=== PATIENT | female | born 1980 | race Caucasian/White ===

== ENCOUNTER → 2020-04-29 15:19 | Outpatient (CLI) | payer OTHER, SELFPAY ==
--- NOTE | ~2020-04-29 | US_ITS ---
EXAMINATION: US pelvic complete w TV DATE: 04/29/2020 15:45 INDICATION: Menorrhagia Comparison:No prior studies for comparison. TECHNIQUE: Multiple transabdominal and endovaginal sonographic images of the pelvis performed. FINDINGS: The uterus measures 7.7 x 3.8 x 5.1 cm.. There is a 12 mm nabothian cysts. The endometrial complex measures 4 mm. The right ovary measures 2.7 x 1.9 x 1.6 cm and the left ovary is not visualized. No free fluid. There is no free fluid in the pelvis. There are no abnormal masses seen on either side. IMPRESSION: 1. Unremarkable pelvic ultrasound. Reviewed, dictated and finalized at location A.
== END ==
PROVIDERS: PCP Family Medicine; Visit Provider Obstetrics & Gynecology
DX: N92.0 Excessive and frequent menstruation with regular cycle (principal)
CPT/HCPCS: 76830; 76856

== ENCOUNTER 2020-10-04 09:33 | Emergency (ER) | payer OTHER, SELFPAY ==
[2020-10-04] VITALS (22 sets, daily range): BP systolic 98–131; BP diastolic 57–102; PULSE 56–106; RESP 16–25; TEMP 36.3; O2SAT 100
--- NOTE | ~2020-10-04 | XR_ITS ---
EXAMINATION: XR wrist RT min 3V DATE: 10/04/2020 10:10 INDICATION: Right wrist pain and limited range of motion post fall onto outstretched hand TECHNIQUE: Posteroanterior, oblique, and lateral views of the right wrist were obtained. COMPARISON: none FINDINGS: Comminuted intra-articular fracture at the distal right radius with 4 mm dorsal displacement as well as dorsal angulation resulting in approximately 40 degrees dorsal tilt of the distal articular surfac e. There appears to be obtained to a 2 mm step-off along the dorsal aspect of the articular surface. No other fractures identified. Normal alignment and joint spaces in the visualized right hand. IMPRESSION: 1. Mild dorsal displacement and significant dorsal angulation of a comminuted intra-articular fractur e of the distal right radius. Reviewed, dictated and finalized at location A. R SECURITY CONSULTANT IMPRESSION: 1. Mild dorsal displacement and significant dorsal angulation of a comminuted i ntra-articular fracture of the distal right radius.
--- NOTE | ~2020-10-04 | XR_ITS ---
EXAMINATION: XR wrist RT min 3V DATE: 10/04/2020 12:18 INDICATION: Right wrist pain post splinting TECHNIQUE: 4 views of the right wrist were obtained. COMPARISON: 10/04/2020 at 10:08 AM FINDINGS: Closed reduction and splinting of the previous noted comminuted intra-articular fracture of the dista l right radius with mild decrease in the degree of still moderate amount of posterior angulation. No other fractures identified. IMPRESSION: 1. Mild decrease in still moderate amount of dorsal angulation of a comminuted intra-articular fractu re of the distal right radius. Reviewed, dictated and finalized at location A. OLL OFFICER IMPRESSION: 1. Mild decrease in still moderate amount of dorsal angulation of a comminuted intra-articular fracture of the distal right radius.
--- NOTE | ~2020-10-04 | CT_ITS ---
EXAMINATION: CT wrist RT wo con DATE: 10/04/2020 12:48 INDICATION: Right wrist fracture TECHNIQUE: High resolution computed tomography (CT) of the right wrist and forearm was performed with out intravenous contrast. Additional sagittal and coronal reconstructions were performed. Automated e xposure control and iterative reconstruction technique were employed. The dose-length product was 610 .03 mGy-cm. COMPARISON: None FINDINGS: Again seen is a comminuted intra-articular fracture of the distal right radius. The main transverse f racture plane is displaced approximately 5 mm dorsally. There is comminution and impaction along the dorsal margin of the fracture with dorsal angulation resulting in 25 degrees dorsal tilt of the dista l articular surface. The intra-articular fracture lines form a V-shaped along the articular surface w ith apex at the dorsal rim near the junction of the lunate and scaphoid fossae and with fracture line s extending volar and radial across the dorsal aspect of the scaphoid fossa and volar and ulnarly acr oss the lunate fossa and across the articular surface at the distal radioulnar joint. There is no gre ater than 1.5 mm fracture gap or incongruity along the articular surfaces. No other fractures identif ied. Normal alignment and joint spaces in the visualized right hand and at the right elbow. Soft tiss ues are unremarkable. IMPRESSION: 1. Comminuted intra-articular fracture of the distal right radius with dorsal displacement, dorsal im paction and comminution and dorsal angulation as detailed above. Reviewed, dictated and finalized at location A. RELAY TESTER IMPRESSION: 1. Comminuted intra-articular fracture of the distal right radius with dorsal d isplacement, dorsal impaction and comminution and dorsal angulation as detailed above.
--- NOTE | 2020-10-04 09:44 | ED.UPPEXIN ---
HPI - Extremity Injury (Upper) General Chief Complaint: Extremity Injury, Upper Stated Complaint: right wrist injury Time Seen by Provider: 10/04/20 09:44 Source: patient and family Mode of arrival: ambulatory Limitations: no limitations History of Present Illness HPI narrative: Patient is a 40-year-old female who presents for evaluation of right wrist injury. Patient states she was walking her dog when she began to slip on some steps, falling onto her right outstretched hand, and bearing full weight of the forearm and hand. Patient states she felt a pop with immediate, severe pain in her right wrist. She reports radiation of pain into the elbow but no difficulty moving her elbow. She reports mild swelling at the site. She reports tingling in her fingers. She denies numbness. Patient is right-hand dominant. Patient denies head trauma or neck pain. No loss of consciousness. Patient has been ambulatory. Related Data Home Medications Medication Instructions Recorded Confirmed biotin 1 mg capsule 1 mg PO DAILY 04/18/20 05/20/20 levonorgestrel 20 mcg/24 hours (6 1 device INTRAUTERINE ONCE 09/19/20 09/19/20 yrs) 52 mg intrauterine device Allergies Allergy/AdvReac Type Severity Reaction Status Date / Time No Known Allergies Allergy Verified 09/19/20 08:38 Review of Systems Review of Systems: Narrative: CONSTITUTIONAL: Denies fever CARDIOVASCULAR: Denies chest pain RESPIRATORY: Denies cough or dyspnea. GASTROINTESTINAL: Denies abdominal pain SKIN: Denies rash MUSCULOSKELETAL: Denies back pain, reports right wrist pain NEUROLOGIC: Denies headache PMFSH Past Medical History Medical History (Updated 10/04/20 @ 13:42 by Idania Garcia MD) GERD (gastroesophageal reflux disease) Nicotine dependence, unspecified, uncomplicated Obesity (BMI 30.0-34.9) Vaginal delivery x 2 Surgical History Surgical History H/O adenoidectomy 1983 History of cholecystectomy 2001 History of nasal surgery 2006 Hx of tonsillectomy 1983 Family History Family History Father Diabetes mellitus Cerebrovascular accident Mother Diabetes mellitus Grandparent Diabetes mellitus Hypertension Cerebrovascular accident Family history of kidney disease Malignant neoplasm of prostate Family history of malignant neoplasm of breast Family history of coronary artery disease Other Family history of cardiovascular disease Social History Social History Smoking status: Former smoker Smoking end date: 02/07/15 Alcohol intake: current Drinks per week: 1 Substance use: never Gender identity (if verbalized by the patient): Male Exam Narrative: Exam Narrative: GENERAL: Awake, alert, conversant, tearful HEAD: Normocephalic, atraumatic. EYES: PERRLA and EOMI. ENT: Nares clear, no rhinorrhea or epistaxis. Mucous membranes moist. NECK: Supple. CHEST: No respiratory distress, breathing even and non labored HEART: Regular rate, sinus rhythm ABDOMEN:Non distended, non tender EXTREMITIES: Decreased range of motion in the right wrist due to pain. Deformity present. Radial pulse 2+. Intact sensation median, ulnar, radial nerve distribution. Patient is able to straighten her fingers. Capillary refill less than 3 seconds. Full flexion and extension at the right elbow without limitation. SKIN: Warm, dry, no rash. NEURO:No focal deficits. Alert and oriented x3 Course Vital Signs Vital signs: Vital Signs Temperature 36.3 C L 10/04/20 09:37 Pulse Rate 63 10/04/20 09:37 Respiratory Rate 18 10/04/20 09:37 Blood Pressure 116/66 10/04/20 09:37 Pulse Oximetry 100 10/04/20 09:37 Temperature 36.3 C L 10/04/20 09:37 Pulse Rate 100 10/04/20 12:01 Respiratory Rate 18 10/04/20 12:01 Blood Pressure 118/102 H 10/04/20 12:01 Pul
[2020-10-04] MEDS: SODIUM CHLORIDE 0.9% IV 1,000 ML 999 ML IV CONT (10:00)
[2020-10-04] MEDS: fentaNYL CITRATE INJ (*CRX) 100 MCG/2 ML VIAL 50 MCG IV PUSH (10:00)
[2020-10-04] MEDS: ONDANSETRON INJ 4 MG/2 ML VIAL IV PUSH (10:00)
[2020-10-04] MEDS: HYDROmorphone HCL INJ (*CRX) 1 MG/ML SYR 0.5 MG IV PUSH (10:49)
[2020-10-04] MEDS: fentaNYL CITRATE INJ (*CRX) 100 MCG/2 ML VIAL (12:08)
--- NOTE | 2020-10-04 12:22 | PC.NURSE ---
resting on stretcher. had closed reduction of right wrist. see provider notes. OCL on. fentanyl given prior to procedure and nerve block. denies any pain right now. in room.
--- NOTE | 2020-10-04 13:27 | PC.NURSE ---
resting on stretcher. had CT of right wrist. report is pending. also has order for Vit D level will draw now.
[2020-10-04 14:22] LABS: Vitamin D 25 Hydroxy 23.6 ng/mL
== END 2020-10-04 14:12 | disposition home or self-care (01) ==
PROVIDERS: Emergency Provider Emergency Medicine; PCP Family Medicine
DX: S52.571A Other intraarticular fracture of lower end of right radius, initial encounter for closed fracture (principal); K21.9 Gastro-esophageal reflux disease without esophagitis; E66.9 Obesity, unspecified; Z68.30 Body mass index [BMI] 30.0-30.9, adult; Z87.891 Personal history of nicotine dependence; W10.9XXA Fall (on) (from) unspecified stairs and steps, initial encounter; Y93.K1 Activity, walking an animal
CPT/HCPCS: 25605; 36415; 73110; 73200; 82306; 96374; 96375; 96376; 99285; A4565; J1170; J2405; J3010; J7030

== ENCOUNTER 2020-10-08 01:47 | Day surgery (SDC) | payer OTHER, SELFPAY ==
[2020-10-07 15:04] VITALS: BMI 30.9
--- NOTE | 2020-10-07 17:03 | PM.IMHP ---
H&P: HPI History of Present Illness Date/Time: 10/07/20 17:03 <DAISY Waterman - Last Filed: 10/07/20 17:09> Chief Complaint: Right distal radius fracture <DAISY Waterman - Last Filed: 10/07/20 17:09> Narrative: Alejandra Jerez is a 40 year old female Who presents today for ORIF of her right distal radius fracture. Fracture happened 5 days ago. She was chasing her dog outside when she slipped on the ice landing hard on the right wrist. She had immediate pain in the wrist she was seen in the emergency room x-rays showed a comminuted displaced distal radius fracture. She underwent closed reduction in the ER by the doctors there. She was placed in a sugar-tong splint. CT scan was done of the wrist. These were reviewed by . Patient was seen in the office on 10/07. At that time discussed with her given the severity of the fracture with the comminution and displacement and given her young age that this would be best treated with ORIF of the right distal radius. She presents today for that. Patient did have some tingling in her fingers that started following splint placement, initially was rather intense tingling which has subsided to only very mild when she was seen in the office. <DAISY Waterman - Last Filed: 10/07/20 17:09> Review of Systems Review of Systems: All systems reviewed & are unremarkable except as noted in HPI and below <DAISY Waterman - Last Filed: 10/07/20 17:09> [facility] Past Medical History Medical History: Medical History (Updated 10/07/20 @ 21:34 by Jackelyn Saldana MD) GERD (gastroesophageal reflux disease) Nicotine dependence, unspecified, uncomplicated Obesity (BMI 30.0-34.9) Vaginal delivery x 2 <DAISY Waterman - Last Filed: 10/07/20 17:09> Surgical History Surgical History: Surgical History H/O adenoidectomy 1983 History of cholecystectomy 2001 History of nasal surgery 2006 Hx of tonsillectomy 1983 <DAISY Waterman - Last Filed: 10/07/20 17:09> Family History Family History: Family History Father Diabetes mellitus Cerebrovascular accident Mother Diabetes mellitus Grandparent Diabetes mellitus Hypertension Cerebrovascular accident Family history of kidney disease Malignant neoplasm of prostate Family history of malignant neoplasm of breast Family history of coronary artery disease Other Family history of cardiovascular disease <DAISY Waterman - Last Filed: 10/07/20 17:09> Social History Social History: Social History Years smoked: 15 Smoking status: Former smoker Tobacco type: cigarettes Smoking end date: 10/04/15 Alcohol intake: current Drinks per week: 1 Substance use: never Living arrangements: with family Gender identity (if verbalized by the patient): Male Spiritual care concerns: No <DAISY Waterman - Last Filed: 10/07/20 17:09> Meds Home Medications and Allergies Home medications: Home Medications Medication Instructions Recorded Confirmed Type biotin 1 mg capsule 1 mg PO DAILY 04/18/20 10/07/20 History famotidine 40 mg tablet 40 mg PO DAILY #90 tablet 08/26/20 10/07/20 Rx docusate sodium [Colace] 100 mg PO DAILY 15 Days #15 cap 10/04/20 10/07/20 Rx ibuprofen 400 mg PO TID PRN 10 Days #30 10/04/20 10/07/20 Rx tablet ondansetron HCl [Zofran] 4 mg PO Q8H #14 tablet 10/04/20 10/07/20 Rx oxycodone [Roxicodone] 5 mg PO Q8H PRN #20 tablet 10/04/20 10/07/20 Rx <DAISY Waterman - Last Filed: 10/07/20 17:09> Allergies/Adverse reactions: Allergies Allergy/AdvReac Type Severity Reaction Status Date / Time No Known Allergies Allergy Verified 10/07/20 14:44 <DAISY Waterman - Last Filed: 10/07/20 17:09> Exam Narrative: Exam Narrative: 40-year-old female [place]
--- NOTE | ~2020-10-08 | XR_ITS ---
XR surgery orthopedic 10/08/2020 09:41 Indication: Intraoperative fixation of right wrist Procedure: 10 fluoroscopic images of the right wrist. 338 seconds of fluoroscopy. Comparison: 10/04/2020 Findings: There is anatomic alignment of the distal aspect of the radius fracture status post reducti on with sideplate and screws. No other gross fracture or malalignment. Impression: 1: Anatomic alignment of the distal aspect of the radius post internal reduction with sideplate and s crews. Reviewed, dictated and finalized at location A. OM CLOTHIER Impression: 1: Anatomic alignment of the distal aspect of the radius post internal reductio n with sideplate and screws.
--- NOTE | 2020-10-08 06:49 | WPDANESEPPF ---
Anes - Initial Pre Proc Eval Procedure: Operation Date: 10/08/20 07:30 Proposed Procedures p Open Reduction Internal Fixation Right Wrist - Louis Arzola MD Date/Time: 10/08/20 06:49 Surgeon: Louis Arzola MD Pre Op Diagnosis: right distal radius fx Patient Data Age: 40 Gender: F Height: 1.63 m Weight: 81.65 kg Allergies Allergy/AdvReac Type Severity Reaction Status Date / Time No Known Allergies Allergy Verified 10/07/20 14:44 Home Medications Medication Instructions Recorded Confirmed Type biotin 1 mg capsule 1 mg PO DAILY 04/18/20 10/07/20 History famotidine 40 mg tablet 40 mg PO DAILY #90 tablet 08/26/20 10/07/20 Rx docusate sodium [Colace] 100 mg PO DAILY 15 Days #15 cap 10/04/20 10/07/20 Rx ibuprofen 400 mg PO TID PRN 10 Days #30 10/04/20 10/07/20 Rx tablet ondansetron HCl [Zofran] 4 mg PO Q8H #14 tablet 10/04/20 10/07/20 Rx oxycodone [Roxicodone] 5 mg PO Q8H PRN #20 tablet 10/04/20 10/07/20 Rx Patient hx anesthesia problems: post op nausea/vomiting Family hx anesthesia problems: none PMFSH Past Medical History Medical History (Updated 10/07/20 @ 21:34 by Jackelyn Saldana MD) GERD (gastroesophageal reflux disease) Nicotine dependence, unspecified, uncomplicated Obesity (BMI 30.0-34.9) Vaginal delivery x 2 Surgical History Surgical History H/O adenoidectomy 1983 History of cholecystectomy 2001 History of nasal surgery 2006 Hx of tonsillectomy 1983 Family History Family History Father Diabetes mellitus Cerebrovascular accident Mother Diabetes mellitus Grandparent Diabetes mellitus Hypertension Cerebrovascular accident Family history of kidney disease Malignant neoplasm of prostate Family history of malignant neoplasm of breast Family history of coronary artery disease Other Family history of cardiovascular disease Social History Social History Years smoked: 15 Smoking status: Former smoker Tobacco type: cigarettes Smoking end date: 10/04/15 Alcohol intake: current Drinks per week: 1 Substance use: never Living arrangements: with family Gender identity (if verbalized by the patient): Male Spiritual care concerns: No Anes - Eval Final PreProcedure Day of Procedure 10/08/20 06:49 Patient weight: obese Heart: regular rate and rhythm Lungs: clear to auscultation and normal air movement Airway: Mallampati scale class II Neurological: alert and oriented Last oral intake: >/= 8 hours ASA classification: II Emergent: no Anesthetic plan: proceed Anesthesia type and monitoring: general ETT and standard monitoring Informed Consent: The patient's anesthetic plan and its attendant risks and benefits were discussed with the patient/family/POA. Questions were solicited and answers provided to the satisfaction of the patient/family/POA.
[2020-10-08] MEDS: SCOPOLAMINE 1.5 MG PATCH TRANSDERM (06:56)
[2020-10-08] MEDS: FAMOTIDINE 20 MG/2 ML VIAL IV PUSH (06:56)
[2020-10-08] MEDS: KETOROLAC 15 MG/ML VIAL (*BKC) IV PUSH (06:58)
[2020-10-08] MEDS: ACETAMINOPHEN 500 MG TABLET 1000 MG PO (06:58)
[2020-10-08] MEDS: LACTATED RINGERS 1,000 ML 30 ML IV CONT ×2 (06:59→09:40)
[2020-10-08 07:06] VITALS: BP 124/76; PULSE 79; RESP 14; TEMP 36.3; O2SAT 98; BMI 32.4
--- NOTE | 2020-10-08 07:14 | WPDHPUPDATE1 ---
History and Physical Update Update Date/Time: 10/08/20 07:14 History and Physical has been reviewed, including an updated exam of the patient. There are NO changes in the patient's condition. Risks, benefits, and alternatives have been discussed and questions answered. Patient agrees to proceed with procedure.
[2020-10-08] MEDS: ceFAZolin 2 GM/D5W 50 ML 2 GM/50 ML BAG IVPB (07:28)
--- NOTE | 2020-10-08 07:50 | WPDANESPNB ---
Anes - Peripheral Nerve Block Date/Time: 10/08/20 07:50 I have discussed with the patient/family/POA the placement of a peripheral nerve block for post-operative pain management, including associated risks, benefits, complications, and side effects. Alternative methods of post-operative analgesia were detailed. Questions were solicited and answers provided to the satisfaction of the patient/family/POA. Time-Out: A pre-procedural Time-Out was completed immediately before starting the procedure and confirmed: Patient Identification, Site, Procedure, Patient Position and the Availability of Requisite Equipment. Clinical Indications: Acute post-operative pain management requested by the operative surgeon. Nerve Block Insertion Note Anes-nerve block: supraclavicular right Patient position: supine Skin prep: chlorhexidine Needle: 22 gauge, stimulating, insulated echogenic needle. Needle length: 50 mm Technique: ultrasound Injectate: bupivacaine 0.5% with epi 5 mcg/ml (30cc) Observations: tolerated well Complications: none Procedure start time:: 719 Procedure end time:: 722
[2020-10-08] MEDS: ceFAZolin SODIUM 1 GM VIAL IRRIGATION (07:52)
[2020-10-08] MEDS: ceFAZolin SODIUM 1 GM VIAL IV PUSH (09:31)
--- NOTE | 2020-10-08 09:44 | PM.PROC ---
Procedure Note - Detailed Date of procedure: 10/08/20 Pre-op diagnosis: right distal radius fx Post-op diagnosis: other (Three-part right distal radius fracture and at least partial tear scapholunate ligament) Procedure performed: Patient brought to the operating room and general anesthesia was administered and the right arm prepped draped usual fashion. She received 1 g of vancomycin g of Ancef preoperatively. Limb was exsanguinated and tourniquet elevated to 225 mmHg. A 3-1/2 inch longitudinal incision was made between the radial artery and the CR tendon. Dissection was carried down to FCR tendon sheath which was incised longitudinally and the floor of the sheath incised exposing deep compartment. Flexor pollicis longus retracted ulnarly. Pronator quadratus incised along its radial border elevated off the volar surface of the distal radius. Anatomic reduction was achieved. The sagittal split in the distal fragment remained nondisplaced so we had 1 main volar fragment which assisted with anatomic reduction. The innovation locking plate was chosen and positioned properly using the narrowest plate. This fit line to line medial to lateral on the metaphysis. Guide pin was inserted in the guide pin hole of the distal portion of the plate confirming proper position of plate distally relative to the subchondral bone line. There was rather extensive metaphyseal comminution at the shell of the metaphysis lined up very nicely. The 6 pegs were placed in the distal portion of the plate avoiding dorsal penetration with each peg using fluoroscopy to assist and measurements size. Satisfied with this we on reapplied the traction and loose in the oval screw as we had about 2 mm of ulnar displacement of the shaft relative to the distal fragment and we corrected that and then took the traction off again allowing fracture to settle and optimal alignment relative to shaft. The remaining 2 shaft cortical screws were placed. We confirmed proper lengths of these to avoid dorsal shaft penetration. We studied the scapholunate interval which seemed borderline and on axial loading scapholunate interval widened. I did not feel this would be acceptable and a 40-year-old and I used an 062 K-wire inserted through the waist of the scaphoid and using this as a joystick, the scapholunate interval was reduced I thought and the applied some pressure on the dorsum of the base of metacarpals to correct the DISI deformity simultaneously and pass the and into the lunate. On inspection of the scapholunate interval however I felt that we were still a little bit wide and made the decision therefore 2 removed this and and referred the patient to a hand commission specialist for evaluation and management of the mild scapholunate ligament widening. The wound was irrigated with Ancef solution. The pronator quadratus was approximated to its radial origin with for 0 Vicryl. The skin was closed with through subcutaneous Vicryl and glue. EBL was legs with her. Third g Ancef given at time of wound closure. She did receive a interscalene block preoperatively. She was transferred postop recovery room in stable condition. Surgeon: Louis Arzola MD
[2020-10-08 09:45] VITALS: BP 134/62; PULSE 108; RESP 16; TEMP 35.9; O2SAT 97
[2020-10-08 10:00] VITALS: BP 112/59; PULSE 85; RESP 20; O2SAT 97
[2020-10-08 10:15] VITALS: BP 130/60; PULSE 84; RESP 12; O2SAT 92
[2020-10-08] MEDS: fentaNYL CITRATE INJ (*CRX) 100 MCG/2 ML VIAL 25 MCG IV PUSH ×2 (10:19→10:24)
[2020-10-08] MEDS: ONDANSETRON INJ 4 MG/2 ML VIAL IV PUSH (10:40)
[2020-10-08 10:42] VITALS: BP 103/60; PULSE 67; RESP 16
--- NOTE | 2020-10-08 10:57 | SUR.PHASEII ---
DR. COVARRUBIAS SPOKE TO PATIENT ABOUT HER RIGHT WRIST STATUS.
--- NOTE | 2020-10-08 11:00 | SUR.PHASEII ---
SPEECH SLIGHTLY SLURRED, HESITANT. ORIENTED X 3.
[2020-10-08 11:10] VITALS: BP 97/63; PULSE 66; RESP 16
--- NOTE | 2020-10-08 11:38 | SUR.PHASEII ---
PATIENT ASSISTED WITH DRESSING. INSTRUCTIONS REVIEWED WITH ON THE PHONE.
== END 2020-10-08 11:51 | disposition home or self-care (01) ==
PROVIDERS: PCP Family Medicine; Visit Provider Orthopaedic Surgery
PROC: (CPT 25575; principal; 2020-10-08 07:30)
DX: S52.571A Other intraarticular fracture of lower end of right radius, initial encounter for closed fracture (principal); S63.591A Other specified sprain of right wrist, initial encounter; G89.18 Other acute postprocedural pain; W00.0XXA Fall on same level due to ice and snow, initial encounter; K21.9 Gastro-esophageal reflux disease without esophagitis; Z87.891 Personal history of nicotine dependence; E66.9 Obesity, unspecified; Z68.32 Body mass index [BMI] 32.0-32.9, adult
CPT/HCPCS: 25609; 64415; A9270; C1713; J0330; J0690; J1100; J1885; J2250; J2405; J2704; J3010; J3370; J7120

== ENCOUNTER → 2021-03-01 02:58 | Outpatient (CLI) | payer OTHER, SELFPAY ==
[2021-03-01 19:46] LABS: SARS-CoV-2 RNA PCR Negative
== END ==
PROVIDERS: PCP Family Medicine; Visit Provider Obstetrics & Gynecology
DX: Z01.812 Encounter for preprocedural laboratory examination (principal); Z20.822 Contact with and (suspected) exposure to COVID-19
CPT/HCPCS: C9803; U0003; U0005

== ENCOUNTER 2021-03-05 00:49 | Day surgery (SDC) | payer BC, SELFPAY ==
[2021-02-19 18:12] VITALS: BMI 31.3
--- NOTE | 2021-03-05 08:28 | PM.IMHP ---
H&P: HPI History of Present Illness Date/Time: 03/05/21 08:28 40 y/o with heavy, crampy menses. She tried a Mirena, but continued to have heavy, prolonged menses with intermenstrual spotting and cramping, so the IUD was removed. A pelvic ultrasound was unremarkable. Her has had a vasectomy. Chief Complaint: Heavy periods. Review of Systems Review of Systems: All systems reviewed & are unremarkable except as noted in HPI and below PMFSH Past Medical History Medical History Bulky or enlarged uterus Chest pain Distal radius fracture, right comminuted, compacted, angulated. reduced in er. partial tear of scapholunate ligament GERD (gastroesophageal reflux disease) Hx of abnormal mammogram ( left) biopsy:normal ( reported by patient) Nicotine dependence, unspecified, uncomplicated Obesity (BMI 30.0-34.9) Partial tear of right scapholunate ligament Vaginal delivery x 2 Surgical History Surgical History H/O adenoidectomy 1983 H/O wrist surgery 2020 History of cholecystectomy 2001 History of nasal surgery 2005 Hx of tonsillectomy 1983 Family History Family History Father Diabetes mellitus Cerebrovascular accident Mother Diabetes mellitus Grandparent Diabetes mellitus Hypertension Cerebrovascular accident Family history of kidney disease Malignant neoplasm of prostate Family history of malignant neoplasm of breast Family history of coronary artery disease Other Family history of cardiovascular disease Social History Social History Years smoked: 15 Smoking status: Former smoker Tobacco type: cigarettes Smoking end date: 10/04/13 Additional smoking assessment comments: 5 cigarettes a day Alcohol intake: current Drinks per week: 1 Alcohol use details: occasionally Substance use: never Living arrangements: with family Spiritual care concerns: No Meds Home Medications and Allergies Home Medications Medication Instructions Recorded Confirmed Type biotin 1 mg capsule 1 mg PO DAILY 04/18/20 02/19/21 History famotidine 40 mg tablet 40 mg PO DAILY #90 tablet 08/26/20 02/19/21 Rx amoxicillin-pot clavulanate 1 tablet PO Q8H 02/19/21 02/19/21 History Allergies Allergy/AdvReac Type Severity Reaction Status Date / Time No Known Allergies Allergy Verified 02/19/21 17:53 Vital Signs AVSS Exam Const: Orientation/consciousness: patient oriented x3 Other: Well-developed, well-nourished female in no acute distress. Neck: Thyroid: thyroid normal Lymphatic: no lymphadenopathy noted (in neck, axilla or inguinal nodes) Resp: Effort & Inspection: normal respiratory effort Auscultation: clear to auscultation bilaterally Cardio: Rate: regular rate Rhythm: regular rhythm Heart sounds: S1 normal heart sound present and S2 normal heart sound present GI: Other: ABD: Soft, nontender, nondistended. No guarding or rebound tenderness. No hepatosplenomegaly. : General: Yes no CVA tenderness Other: External genitalia: normal female hair distribution, without lesion. Urethral meatus: no lesion, non prolapsed. Bladder: no mass, nontender Vagina: well-estrogenized, without lesion or discharge. No cystocele or rectocele. Cervix: no lesion or discharge. Uterus: small, anteverted, freely mobile, nontender Adnexa: no mass or tenderness. Anus/perineum: no lesions, nontender Back/Spine/Pelvis: Back: no CVA tenderness Skin: General skin exam: normal color and no rashes or lesions noted Neuro: General: patient oriented x3 Extrem: Other: Extremities: nontender with no edema Psych: Mental Status: mental status grossly normal Affect: normal affect Assessment and Plan Assessment and plan (1) Menometrorrhagia: Code
[2021-03-05 10:20] VITALS: BP 102/67; PULSE 72; RESP 16; TEMP 36.4; O2SAT 100
[2021-03-05] MEDS: ACETAMINOPHEN 500 MG TABLET 1000 MG PO (10:45)
[2021-03-05 10:47] VITALS: BMI 31.5
[2021-03-05] MEDS: LACTATED RINGERS 1,000 ML 30 ML IV CONT (11:30)
--- NOTE | 2021-03-05 11:51 | SUR.PREOP ---
1140- Notified patient and spouse OR running behind and procedure will be delayed. Patient and spouse verbalized understanding at this time.
--- NOTE | 2021-03-05 12:29 | WPDHPUPDATE1 ---
History and Physical Update Update Date/Time: 03/05/21 12:29 History and Physical has been reviewed, including an updated exam of the patient. There are NO changes in the patient's condition. Risks, benefits, and alternatives have been discussed and questions answered. Patient agrees to proceed with procedure.
--- NOTE | 2021-03-05 12:32 | WPDANESEPPF ---
Anes - Initial Pre Proc Eval Procedure: Operation Date: 03/05/21 12:00 Proposed Procedures p Hysteroscopy Dilation and Curettage Aracelis - Esa Fine MD Date/Time: 03/05/21 12:32 Surgeon: Esa Fine MD Pre Op Diagnosis: Heavy mensus Patient Data Age: 40 Gender: F Height: 5 ft 4 in Weight: 83.4 kg Last Vital Signs Temp 36.4 C L 03/05/21 10:20 Pulse 72 03/05/21 10:20 Resp 16 03/05/21 10:20 BP 102/67 03/05/21 10:20 Pulse Ox 100 03/05/21 10:20 Allergies Allergy/AdvReac Type Severity Reaction Status Date / Time No Known Allergies Allergy Verified 03/05/21 10:33 Home Medications Medication Instructions Recorded Confirmed Type biotin 1 mg capsule 1 mg PO DAILY 04/18/20 03/05/21 History famotidine 40 mg tablet 40 mg PO DAILY #90 tablet 08/26/20 03/05/21 Rx hydrocodone-acetaminophen 1 - 2 tablet PO Q6H PRN #30 tablet 03/05/21 Rx Patient hx anesthesia problems: post op nausea/vomiting Family hx anesthesia problems: none PMFSH Past Medical History Medical History Bulky or enlarged uterus Chest pain Distal radius fracture, right comminuted, compacted, angulated. reduced in er. partial tear of scapholunate ligament GERD (gastroesophageal reflux disease) Hx of abnormal mammogram ( left) biopsy:normal ( reported by patient) Nicotine dependence, unspecified, uncomplicated Obesity (BMI 30.0-34.9) Partial tear of right scapholunate ligament Vaginal delivery x 2 Surgical History Surgical History H/O adenoidectomy 1983 H/O wrist surgery 2020 History of cholecystectomy 2001 History of nasal surgery 2005 Hx of tonsillectomy 1983 Family History Family History Father Diabetes mellitus Cerebrovascular accident Mother Diabetes mellitus Grandparent Diabetes mellitus Hypertension Cerebrovascular accident Family history of kidney disease Malignant neoplasm of prostate Family history of malignant neoplasm of breast Family history of coronary artery disease Other Family history of cardiovascular disease Social History Social History Years smoked: 15 Smoking status: Former smoker Tobacco type: cigarettes Smoking end date: 10/04/13 Additional smoking assessment comments: 5 cigarettes a day Alcohol intake: current Drinks per week: 1 Alcohol use details: occasionally Substance use: never Living arrangements: with family Spiritual care concerns: No Anes - Eval Final PreProcedure Day of Procedure 03/05/21 12:32 Patient weight: overweight Heart: regular rate and rhythm Lungs: clear to auscultation Airway: Mallampati scale class II Neurological: alert and oriented Last oral intake: >/= 8 hours ASA classification: II Emergent: no Anesthetic plan: proceed Anesthesia type and monitoring: general GIVS and standard monitoring Informed Consent: The patient's anesthetic plan and its attendant risks and benefits were discussed with the patient/family/POA. Questions were solicited and answers provided to the satisfaction of the patient/family/POA.
[2021-03-05] MEDS: SCOPOLAMINE 1.5 MG PATCH TRANSDERM (12:41)
--- NOTE | 2021-03-05 13:35 | PM.PROC ---
Procedure Note - Detailed Date of procedure: 03/05/21 Pre-op diagnosis: Heavy mensus Menometrorrhagia Dysmenorrhea Post-op diagnosis: same Procedure performed: Removal of IUD Hysteroscopy Dilation and sharp curettage Endometrial ablation with Aracelis Description of procedure: The patient was taken to the operating room where she was prepared and draped in the usual sterile fashion in the dorsal lithotomy position. The bladder was drained with a red rubber catheter. A sterile speculum was placed into the vagina. The IUD strings were grasped with a ring forceps. The IUD was easily removed, intact, and discarded. The anterior lip of the cervix was grasped with single-tooth tenaculum. Ten mL of 1% lidocaine was administered in a paracervical block. The cervix was then gently dilated using Hegar dilators until an 8 mm dilator could be passed. Hysteroscopy was performed using sterile saline as a distention medium. Findings are as noted above. Sharp curettage was then performed, and endometrial curettings were collected on a Telfa pad and passed off to be sent to pathology. Finally, the the Aracelis device was advanced and endometrial ablation commenced without difficulty. The device was withdrawn and a second look was taken using the hysteroscope. Excellent coverage of the endometrial cavity was noted. The tenaculum was removed. Hemostasis was excellent. Sponge, lap, needle and instrument counts were correct. The patient was awakened and taken to the recovery room in stable condition. I was present and scrubbed through the entire procedure. Implants: None Anesthesia: MAC and local (1% lidocaine) Surgeon: Esa Fine MD Estimated blood loss (mL): 5 Drains: No Packing: No Pathology: yes (endometrial curettings) Complications: None Condition: stable Disposition: PACU Findings: IUD was intact. Endometrial cavity unremarkable. Both tubal ostia seen. Uterus sounded to 7.5 cm with cervical length of 3 cm, giving a subtracted uterine cavity length of 4.5 cm.
[2021-03-05 13:53] VITALS: BP 121/63; PULSE 73; RESP 16; O2SAT 95
[2021-03-05 14:15] VITALS: BP 119/73; PULSE 56; RESP 20
[2021-03-05] MEDS: oxyCODONE HCL (*CRX) 5 MG TAB IR PO (14:26)
[2021-03-05 14:45] VITALS: BP 121/76; PULSE 53; RESP 20
[2021-03-05] MEDS: fentaNYL CITRATE INJ (*CRX) 100 MCG/2 ML VIAL 25 MCG IV PUSH ×2 (14:51→15:00)
[2021-03-05 15:15] VITALS: BP 119/73; PULSE 56; RESP 16
== END 2021-03-05 15:27 | disposition home or self-care (01) ==
PROVIDERS: PCP Family Medicine; Visit Provider Obstetrics & Gynecology
PROC: 0U5B8ZZ Destruction of Endometrium, Via Natural or Artificial Opening Endoscopic (ICD-10-PCS; CPT 58563; principal; 2021-03-05 12:00)
DX: N92.1 Excessive and frequent menstruation with irregular cycle (principal); N94.6 Dysmenorrhea, unspecified; Z30.432 Encounter for removal of intrauterine contraceptive device; K21.9 Gastro-esophageal reflux disease without esophagitis; Z87.891 Personal history of nicotine dependence
CPT/HCPCS: 58563; 58301; 88305; A9270; C9803; J2250; J2704; J3010; J7030; J7120; U0003; U0005

== ENCOUNTER 2023-11-03 00:16 | Day surgery (SDC) | payer BC, SELFPAY ==
[2023-10-07 09:14] VITALS: BMI 22.5
--- NOTE | 2023-11-01 13:01 | SUR.PREOP ---
Patient called regarding upcoming procedure. Pt updated on arrival date and time. All questions answered.
[2023-11-03 08:32] VITALS: BP 102/64; PULSE 81; RESP 20; TEMP 36.6; O2SAT 100
--- NOTE | 2023-11-03 08:44 | WPDANESEPPF ---
Anes - Initial Pre Proc Eval Procedure: Operation Date: 11/03/23 09:30 Proposed Procedures p Colonoscopy - Jose Tolentino MD Date/Time: 11/03/23 08:44 Surgeon: Jose Tolentino MD Pre Op Diagnosis: abdominal pain,abnormal weight loss Patient Data Age: 43 Gender: F Height: 1.63 m Weight: 61.8 kg Last Vital Signs Temp 97.8 F 11/03/23 08:32 Pulse 81 11/03/23 08:32 Resp 20 11/03/23 08:32 BP 102/64 11/03/23 08:32 Pulse Ox 100 11/03/23 08:32 O2 Del Method Room Air 11/03/23 08:32 Allergies Allergy/AdvReac Type Severity Reaction Status Date / Time No Known Allergies Allergy Verified 11/03/23 08:31 Home Medications Medication Instructions Recorded Confirmed Type cholecalciferol (vitamin D3) 50 50 mcg PO DAILY 09/17/21 10/07/23 History mcg (2,000 unit) capsule buspirone 10 mg tablet See Rx Instructions PO .COMPLEX 06/21/23 10/07/23 Rx #360 tabs famotidine 40 mg tablet 40 mg PO DAILY #90 tabs 09/24/23 10/07/23 Rx biotin 5,000 mcg chewable tablet 5,000 mcg PO DAILY 10/07/23 10/07/23 History omeprazole 40 mg capsule,delayed 40 mg PO DAILY 10/07/23 10/07/23 History release zinc 50 mg tablet 50 mg PO DAILY PRN other 10/07/23 10/07/23 History Patient hx anesthesia problems: post op nausea/vomiting Family hx anesthesia problems: none Results Review: All pre-operative results and documents have been reviewed as part of the pre-operative evaluation. [facility] Past Medical History Medical History Bulky or enlarged uterus Chest pain Deviated nasal septum Distal radius fracture, right comminuted, compacted, angulated. reduced in er. partial tear of scapholunate ligament GERD (gastroesophageal reflux disease) Hx of abnormal mammogram ( left) biopsy:normal ( reported by patient) Lipoma Nicotine dependence, unspecified, uncomplicated Obesity (BMI 30.0-34.9) Partial tear of right scapholunate ligament Vaginal delivery x 2 Surgical History Surgical History H/O adenoidectomy 1983 H/O wrist surgery 2020 History of cholecystectomy 2001 History of endometrial ablation 6.2.21 History of nasal surgery 2006 Hx of tonsillectomy 1984 Family History Family History Father Diabetes mellitus Cerebrovascular accident Mother Diabetes mellitus Grandparent Diabetes mellitus Hypertension Cerebrovascular accident Family history of kidney disease Malignant neoplasm of prostate Family history of malignant neoplasm of breast Family history of coronary artery disease Other Family history of cardiovascular disease Social History Social History (Updated 09/29/23 @ 10:40 by Yissel Aceves MA) Years smoked: 15 Smoking status: Former smoker Tobacco type: cigarettes Smoking end date: 10/04/13 Additional smoking assessment comments: 5 cigarettes a day Alcohol intake: current Alcohol use details: rarely Substance use: never Substance use type: does not use Do You Feel Safe in your Home?: Yes Lack of Transportation: No Lack of Food: Never True Current Housing: I Have Housing Concerned About Future Housing: No Difficulty Paying Gas/Electric Bills: No Difficulty Paying for Meds: No Currently Unemployed: No Education: Bachelor's Degree Difficulty w/ Childcare or Family Care: No Living arrangements: with family Spiritual care concerns: No Anes - Eval Final PreProcedure Day of Procedure 11/03/23 08:44 Patient weight: normal Heart: regular rate and rhythm Lungs: clear to auscultation Airway: Mallampati scale class II Neurological: alert and oriented Last oral intake: >/= 8 hours ASA classification: II Emergent: no Anesthetic plan: proceed Anesthesia type and monitoring: general GIVS and standard monitor
[2023-11-03] MEDS: LACTATED RINGERS 1,000 ML 150 ML IV CONT (08:50)
--- NOTE | 2023-11-03 09:16 | PM.HPGS ---
History of Present Illness History of Present Illness Consent: Risks, benefits, and alternatives have been discussed and questions answered. Patient agrees to proceed with procedure. Chief complaint: screening colon Narrative: Alejandra Jerez is a 43 year old female here for first screening colonoscopy Review of Systems Constitutional: Constitutional: Denies headache(s) and Denies weakness Eyes: Eyes: Denies blurry vision ENT: Reports Normal hearing present, Denies headache(s) and Denies neck pain Cardiovascular: Cardiovascular: Denies chest pain and Denies dyspnea Respiratory: Respiratory: Denies dyspnea Gastrointestinal: Gastrointestinal: Reports no additional gastrointestinal complaints Genitourinary: Genitourinary: Denies dysuria Musculoskeletal: Musculoskeletal: Denies neck pain Integumentary/Breasts: Skin/Breast: Denies dry skin Neurologic: Reports Normal hearing present, Denies headache(s) and Denies weakness Psychiatric: Psychiatric: Denies anxiety Endocrine: Endocrine: Denies change in body appearance Hematologic/Lymphatic: Hematologic/Lymphatic: Denies easy bleeding Allergic/Immunologic: Allergic/Immunologic: Denies urticaria [facility] Past Medical History Medical History (Updated 11/03/23 @ 09:17 by Jose Tolentino MD) Bulky or enlarged uterus Chest pain Colon cancer screening Deviated nasal septum Distal radius fracture, right comminuted, compacted, angulated. reduced in er. partial tear of scapholunate ligament GERD (gastroesophageal reflux disease) Hx of abnormal mammogram ( left) biopsy:normal ( reported by patient) Lipoma Nicotine dependence, unspecified, uncomplicated Obesity (BMI 30.0-34.9) Partial tear of right scapholunate ligament Vaginal delivery x 2 Surgical History Surgical History H/O adenoidectomy 1983 H/O wrist surgery 2020 History of cholecystectomy 2001 History of endometrial ablation 6.2.21 History of nasal surgery 2005 Hx of tonsillectomy 1983 Family History Family History Father Diabetes mellitus Cerebrovascular accident Mother Diabetes mellitus Grandparent Diabetes mellitus Hypertension Cerebrovascular accident Family history of kidney disease Malignant neoplasm of prostate Family history of malignant neoplasm of breast Family history of coronary artery disease Other Family history of cardiovascular disease Social History Social History (Updated 09/29/23 @ 10:40 by Yissel Aceves MA) Years smoked: 15 Smoking status: Former smoker Tobacco type: cigarettes Smoking end date: 10/04/13 Additional smoking assessment comments: 5 cigarettes a day Alcohol intake: current Alcohol use details: rarely Substance use: never Substance use type: does not use Do You Feel Safe in your Home?: Yes Lack of Transportation: No Lack of Food: Never True Current Housing: I Have Housing Concerned About Future Housing: No Difficulty Paying Gas/Electric Bills: No Difficulty Paying for Meds: No Currently Unemployed: No Education: Bachelor's Degree Difficulty w/ Childcare or Family Care: No Living arrangements: with family Spiritual care concerns: No Meds Home Medications and Allergies Home Medications Medication Instructions Recorded Confirmed Type cholecalciferol (vitamin D3) 50 50 mcg PO DAILY 09/17/21 10/07/23 History mcg (2,000 unit) capsule buspirone 10 mg tablet See Rx Instructions PO .COMPLEX 06/21/23 10/07/23 Rx #360 tabs famotidine 40 mg tablet 40 mg PO DAILY #90 tabs 09/24/23 10/07/23 Rx biotin 5,000 mcg chewable tablet 5,000 mcg PO DAILY 10/07/23 10/07/23 History omeprazole 40 mg capsule,delayed 40 mg PO DAILY 10/07/23 10/07/23 History release zinc 50 mg tablet 50 mg PO DAILY PRN other 10/07/23 10/07/23 History Allergies Allergy
[2023-11-03 09:32] VITALS: BP 84/52; PULSE 86; RESP 16; O2SAT 98
[2023-11-03 09:42] VITALS: BP 97/59; PULSE 80; RESP 18; O2SAT 100
[2023-11-03 09:52] VITALS: BP 103/68; PULSE 60; RESP 18; O2SAT 100
== END 2023-11-03 10:04 | disposition home or self-care (01) ==
PROVIDERS: PCP Family Medicine; Visit Provider Internal Medicine Gastroenterology
PROC: 0DJD8ZZ Inspection of Lower Intestinal Tract, Via Natural or Artificial Opening Endoscopic (ICD-10-PCS; CPT 45378; principal; 2023-11-03 09:30)
DX: Z12.11 Encounter for screening for malignant neoplasm of colon (principal); K21.9 Gastro-esophageal reflux disease without esophagitis; Z87.891 Personal history of nicotine dependence
CPT/HCPCS: 45378; J1596; J2704; J7120